=== PATIENT | female | born 1965 | race Caucasian/White ===

== ENCOUNTER → 2017-01-21 | Outpatient (CLI) | payer OTHER ==
[~2017-01-21] MED LIST: ATORVASTATIN CA40 MG PO; LATANOPROST2.5 ML OP; LISINOPRIL5 MG PO; MULTI-VITAMIN1 EACH PO; OMEGA PO
== END ==
LOC: RAD 10:56
DX: N63 Unspecified lump in breast (principal); R92.0 Mammographic microcalcification found on diagnostic imaging of breast
CPT/HCPCS: 19081; 19082; J7050